=== PATIENT | male | born 1985 | race Two or more races ===

== ENCOUNTER 2024-08-29 01:00 | Emergency (ER) | payer OTHER, SELFPAY ==
[2024-08-29 01:06] VITALS: BP 136/91; PULSE 104; RESP 20; TEMP 36.8; O2SAT 97
[2024-08-29 01:14] VITALS: PULSE 110; RESP 16; O2SAT 98; BMI 26.6
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
[2024-08-29 01:45] LABS: Lactate (Lactic Acid) 2.2 mMol/L (0.4-2.0)
[2024-08-29 01:46] LABS: Basophils % (Auto) 0 % (0-2.5); Eosinophils % (Auto) 0 % (0-10); Hematocrit 48.2 % (41.0-53.0); Hemoglobin 17.3 g/dL (13.5-16.0); Immature Granulocytes % (Auto) 0 % (0-0); Immature Granulocytes Auto 0.04 Thou/mm3 (0.00-0.00); Lymphocytes # (Auto) 1.8 Thou/mm3 (1.0-4.8); Lymphocytes % (Auto) 15 % (10-50); Mean Corpuscular HGB Conc 35.9 g/dl (31.0-37.0); Mean Corpuscular Hemoglobin 31.1 pg (25.0-35.0); Mean Corpuscular Volume 87 fL (80-100); Monocytes # (Auto) 0.5 Thou/mm3 (0.0-0.8); Monocytes % (Auto) 4 % (0-12); Neutrophils % (Auto) 81 % (37-80); Nucleated Red Blood Cell % 0 /100 WBC (0); Platelet Count 325 Thou/mm3 (140-440); RDW Standard Deviation 39.1 fL (35.1-43.9); Red Blood Count 5.56 Miln/mm3 (4.50-5.90); White Blood Count 12.4 Thou/mm3 (3.8-10.6)
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
[2024-08-29 02:35] VITALS: BP 117/69; PULSE 114; PULSE 96; RESP 19; O2SAT 98
[2024-08-29 02:36] LABS: Alanine Aminotransferase 38 U/L (10-49); Albumin/Globulin Ratio 1.5 (1.2-2.2); Alkaline Phosphatase 78 U/L (46-116); Anion Gap 12 (7-16); Aspartate Amino Transferase 29 U/L (0-34); BUN/Creatinine Ratio 10 Ratio (12-20); Bilirubin,Total 0.3 mg/dL (0.3-1.2); Blood Urea Nitrogen 8 mg/dL (9-23); Calcium 9.4 mg/dL (8.3-10.6); Calcium (Corrected) 9.4 mg/dL (8.5-10.1); Carbon Dioxide 24.1 mMol/L (20.0-31.0); Chloride 107 mMol/L (98-107); Creatinine (Component) 0.8 mg/dL (0.6-1.3); Estimated Creatinine Clearance 114.1 mL/min (>60); Globulin 3.4 gm/dL (2.3-3.5); Glucose 116 mg/dL (74-106); Lipase 41 U/L (12-53); Osmolality,Calculated 284 (275-295); Potassium 4.2 mMol/L (3.4-5.1); Sodium 143 mMol/L (136-145); Total Protein 8.4 gm/dL (5.7-8.2); Troponin I < 0.020 ng/mL (0.0-0.045); eGFR > 60 See Note
[2024-08-29 02:39] LABS: Partial Thromboplastin Time 28.6 Seconds (22.0-36.0); Prothrombin Time 11.3 Seconds (9.0-12.2)
[2024-08-29] MEDS: LIDOCAINE HCL 1% 20 ML VIAL 10 ML IM (02:44)
[2024-08-29] MEDS: DIPHTH,PERTUSS(ACELL),TET VAC 0.5 ML SYR IMi (02:45)
[2024-08-29 02:54] VITALS: BP 116/73; PULSE 98; RESP 16; O2SAT 99
[2024-08-29 03:14] VITALS: BP 103/53; PULSE 67; RESP 16; O2SAT 99
[2024-08-29 04:42] LABS: Reflex Lactate? Y
== END 2024-08-29 03:15 ==
PROVIDERS: Emergency Provider Emergency Medicine
DX: Z02.89 Encounter for other administrative examinations (principal); S01.112A Laceration without foreign body of left eyelid and periocular area, initial encounter; S01.111A Laceration without foreign body of right eyelid and periocular area, initial encounter; S01.21XA Laceration without foreign body of nose, initial encounter; S09.90XA Unspecified injury of head, initial encounter; S09.93XA Unspecified injury of face, initial encounter; S19.9XXA Unspecified injury of neck, initial encounter; S29.9XXA Unspecified injury of thorax, initial encounter; S39.91XA Unspecified injury of abdomen, initial encounter; V49.9XXA Car occupant (driver) (passenger) injured in unspecified traffic accident, initial encounter; Z23 Encounter for immunization
CPT/HCPCS: 12013; 36415; 70450; 70486; 71260; 72125; 74177; 80053; 80307; 80320; 81001; 83605; 83690; 84484; 85025; 85610; 85730; 90471; 90715; 93005; 99285; A4649; J3490; Q9967; G0480